=== PATIENT | male | born 1990 | race Caucasian/White ===

== ENCOUNTER 2023-03-07 09:27 | Emergency (ER) | payer OTHER, SELFPAY ==
[2023-03-07 09:30] VITALS: BP 121/81; PULSE 81; RESP 16; TEMP 36.1; O2SAT 99; BMI 20.6
--- NOTE | 2023-03-07 10:00 | EDS_ITS ---
HPI <Dr. Dalton Poole MD - Last Filed: 03/07/23 15:10> History of Present Illness Chief Complaint: Laceration Informant: patient Narrative Narrative: [id number] healthy male has a work related injury, states he was checking tension on a chain, using his left hand when suddenly it started moving and caught his fingers in the chain between it and the sprocket it was attached to. Tetanus Immunization: <5 years (This year) PFSH <Dr. Dalton Poole MD - Last Filed: 03/07/23 15:10> PFSH Medical History no medical history no medical history Home Medications cephalexin 500 mg capsule 500 mg PO Q8H #21 CAPSULES 03/07/23 [Rx Last Taken Unknown] hydrocodone-acetaminophen 5-325mg 5mg-325mg 1 tab PO Q6H PRN PRN Pain 3 days #10 TABLETS 03/07/23 [Rx Last Taken Unknown] Allergy/AdvReac Type Severity Reaction Status Date / Time bee venom protein (honey bee) Allergy Severe Anaphylaxis Verified 03/07/23 09:30 BANANA AdvReac STOMACH Uncoded 03/07/23 09:30 Social History Smoking Status: Never smoker ROS <Dr. Dalton Poole MD - Last Filed: 03/07/23 15:10> ROS ED Constitutional Constitutional ED: Denies chills or fever(s) Musculoskeletal Musculoskeletal: Reports extremity pain; Denies neck pain Integumentary Reports wounds; Denies Abrasions or rash Neurologic Neurologic: Denies paresthesias or weakness EXAM <Dr. Dalton Poole MD - Last Filed: 03/07/23 15:10> Physical Exam Const Vital Signs: 03/07/23 09:30 Temperature 97.0 F L Temperature Source Temporal Pulse Rate 81 Respiratory Rate 16 Blood Pressure 121/81 H Blood Pressure Mean 94 Pulse Ox 99 Oxygen Delivery Method Room Air Positive well nourished and well developed General Appearance ED: well developed and NAD Neck full ROM and supple Back/Spine normal ROM and normal to inspection Extremity Extremity Narrative: Left hand: Ring finger has partial fingertip amputation. The nail is involved, but the proximal piece of the nail that remains is intact on the bed without a suspected nailbed injury beneath it, and the root of the nail is intact and without trauma. The distal phalanx is not visible, but it is barely palpable within the meet of the wound. There is minor venous oozing, nothing pulsatile. FDS, FDP, extensor mechanisms all intact. Middle finger has a laceration at the ulnar aspect of the fingertip that progresses across the nail, severing the nail completely, the proximal portion of the nail is intact with regards to the nailbed and the root/cuticle, the distal piece of the nail is attached to the nailbed, there is a suspected nailbed laceration here as there was some mild bleeding evident but nothing active. Neuro oriented x3, no focal motor deficits and no sensory deficits noted Sensorium / Orientation: alert Psych mental status grossly normal and thought process normal Skin Skin Narrative: See above, left middle and ring finger injuries distally. No other skin traumatic injuries. middle finger laceration length including nail bed approx 2.5cm. Rashes: no rashes MDM <Dr. Dalton Poole MD - Last Filed: 03/07/23 15:10> [facility] Narrative Medical decision making narrative: Three-view x-ray series of the left hand shows involvement of the distal tuft of fingers 3 and 4, nondisplaced chip fractures, otherwise negative on my interpretation. Radiology in agreement. Digital block was performed for both fingers for pain control, the distal half of the nail that was injured was removed, and the nailbed as well as the rest of the laceration was repaired, see the procedure note. This was done by physician assistant professor of life sciences supervised by myself. I do not think we need to take the rest of the nail off, I have a very low suspicion of a nailbed injury that progresses proximally. Prior to discharge discussed with Dr. Barraza on for [facility], agrees with the management of putting the patient on antibiotics, splinting, dressing changes, and close outpatient follow-up. Given the patient appropriate work restrictions, as well as prescriptions for cephalexin and hydrocodone. Procedures <ALVIN Ponce - Last Filed: 03/07/23 14:55> Lacerations Third finger laceration: Length: 3 cm Depth: Sub Q Shape: Linear Prep: Sterile Conditions, Betadine and Shure-Clens Laceration repair: Digital block, Irrigated, Lidocaine and Wound explored Irrigated (ml): 500 Number of Sutures/[place]: 7 Suture Information: Ethilon Comment: Sterile gloves, sterile drapes were used. Patient tolerated well. I was able to place 7 simple erupted sutures of 4-0 Ethilon. I did remove the distal tip of the nail to the third right finger. I was able to place 2 sutures to the nailbed. Another 5 sutures were along the lateral and p almar aspect of the finger. Discharge Plan Triage Chief Complaint: Laceration ED Provider: Dalton Poole Dx/Rx/DC Orders Clinical Impression: Traumatic amputation of fingertip, Laceration of left middle finger without foreign body with damage to nail, Open fracture of distal phalanx of left middle finger, Open fracture of distal phalanx of ring finger of left hand Instructions: ED Finger Tip Amputation Open ... Prescriptions: New cephalexin [cephalexin] 500 mg capsule 500 mg PO Q8H Qty: 21 0RF hydrocodone-acetaminophen [hydrocodone-acetaminophen] 5-325 mg tablet 1 tab PO Q6H PRN PRN (Reason: Pain) 3 Days Qty: 10 0RF Primary Care Provider: Care Physician,No Primary Referrals: [facility] [Outside] - As soon as possible (call to make appt with [facility] first available practitioner) [facility] [Group of Physicians] - As soon as possible Disposition Disposition: Home, Self Care Discharge Date/Time: 03/07/23 13:31
--- NOTE | 2023-03-07 10:10 | RAD_ITS ---
STUDY: X-RAY - LEFT HAND REASON FOR EXAM: Male, 32 years old. Injury, finger caught in chain at work. Amputation of finger tip left ring finger. Smashing injury to middle finger. TECHNIQUE: 3 views of the left hand. COMPARISON: None. FINDINGS: There is soft tissue amputation of the distal tip of the fourth finger. There are fractures of the kerri of the third and fourth distal phalanges. Normal radiocarpal articulation. Normal distal radioulnar joint. Normal visualized carpal bones. Normal carpal articulations Normal carpometacarpal articulation of the thumb. Normal second through fifth carpometacarpal joints. Normal metacarpi. Normal metacarpophalangeal joint of the thumb. Normal interphalangeal joint of the thumb. Normal proximal and distal phalanges of the thumb. Normal metacarpophalangeal joints of the second through fifth fingers. Normal proximal and distal interphalangeal joints of the second through fifth fingers. RAD/Hand Min 3 Views IMPRESSION: Soft tissue amputation of the distal tip of the fourth finger. Fractures of the kerri of the third and fourth distal phalanges. Electronically Signed: Rahat Bernal MD at 10:22 EDT ,
[2023-03-07] MEDS: Cephalexin 250 MG Capsule 500 MG PO (13:03)
[2023-03-07] MEDS: Lidocaine 1% (20 ml mdv) 20 ML Vial INFILT (13:05)
== END 2023-03-07 13:31 | disposition home or self-care (01) ==
PROVIDERS: Emergency Provider Emergency Medicine; Visit Provider Emergency Medicine
DX: S62.635A Displaced fracture of distal phalanx of left ring finger, initial encounter for closed fracture (principal); Y99.0 Civilian activity done for income or pay; S62.633A Displaced fracture of distal phalanx of left middle finger, initial encounter for closed fracture; S68.115A Complete traumatic metacarpophalangeal amputation of left ring finger, initial encounter; W24.0XXA Contact with lifting devices, not elsewhere classified, initial encounter; Y93.89 Activity, other specified; Y92.69 Other specified industrial and construction area as the place of occurrence of the external cause; S61.313A Laceration without foreign body of left middle finger with damage to nail, initial encounter
CPT/HCPCS: 12002; 11750; 11760; 73130; 99283